=== PATIENT | female | born 2000 | race African-American/Black ===

== ENCOUNTER 2022-01-12 16:30 | Emergency (ER) | payer OTHER ==
[~2022-01-12] VITALS: Ht 180.3 cm; Wt 114.9 kg
== END 2022-01-12 18:34 | disposition home or self-care (01) ==
LOC: FSED 16:42
DX: N94.6 Dysmenorrhea, unspecified (principal); N93.9 Abnormal uterine and vaginal bleeding, unspecified
CPT/HCPCS: 81003; 81025; 99282

== ENCOUNTER 2022-03-25 10:35 | Emergency (ER) | payer OTHER ==
[~2022-03-25] VITALS: Ht 180.3 cm; Wt 114.8 kg
[2022-03-25] MEDS ORDERED: NAPROSYN500 MG PO (14:25)
[2022-03-25] MEDS ORDERED: METHOCARBAMOL500 MG PO (14:29)
== END 2022-03-25 14:34 | disposition home or self-care (01) ==
LOC: ER 13:18
DX: S39.012A Strain of muscle, fascia and tendon of lower back, initial encounter (principal); S70.02XA Contusion of left hip, initial encounter; S70.12XA Contusion of left thigh, initial encounter; W01.0XXA Fall on same level from slipping, tripping and stumbling without subsequent striking against object, initial encounter; Y93.01 Activity, walking, marching and hiking; Y92.89 Other specified places as the place of occurrence of the external cause
CPT/HCPCS: 72110; 72170; 81025; 99284